=== PATIENT | female | born 2005 | race Caucasian/White ===

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

== ENCOUNTER 2025-04-01 14:29 | Emergency (ER) | payer OTHER ==
[~2025-04-01] VITALS: Ht 165.1 cm; Wt 58.2 kg
[2025-04-01] MEDS ORDERED: ONDA-282 PO (19:37)
[2025-04-01 20:08] VITALS: BP 107/69; TEMP 98.3; O2SAT 99
== END 2025-04-01 20:21 | disposition home or self-care (01) ==
LOC: M ED 14:29
DX: S06.0X0A Concussion without loss of consciousness, initial encounter (principal); W22.09XA Striking against other stationary object, initial encounter; Z91.030 Bee allergy status; Y92.512 Supermarket, store or market as the place of occurrence of the external cause; Y93.89 Activity, other specified; Y99.0 Civilian activity done for income or pay; Z79.83 Long term (current) use of bisphosphonates

== ENCOUNTER 2025-04-08 17:52 | Emergency (ER) | payer OTHER ==
[~2025-04-08] VITALS: Ht 165.1 cm; Wt 63.3 kg
[~2025-04-08 17:52] MED LIST changes: +ONDA-282 PO
[2025-04-08] MEDS: ONDANSETRON 4MG ORAL DISINTEGRATING TAB PO ONE (22:44)
[2025-04-08] MEDS: IBUPROFEN 600 MG TAB PO ONE (22:44)
[2025-04-09 00:43] VITALS: BP 109/55; TEMP 96.8; O2SAT 100
== END 2025-04-09 00:44 | disposition home or self-care (01) ==
LOC: M ED 17:52
DX: S06.0X0A Concussion without loss of consciousness, initial encounter (principal); F41.9 Anxiety disorder, unspecified; F90.9 Attention-deficit hyperactivity disorder, unspecified type; Z79.83 Long term (current) use of bisphosphonates; Y92.9 Unspecified place or not applicable; Y93.9 Activity, unspecified; Y99.9 Unspecified external cause status